=== PATIENT | male | born 1975 | race Caucasian/White ===

== ENCOUNTER 2025-06-20 11:01 | Emergency (ER) | payer BC, SELFPAY ==
--- NOTE | 2025-06-20 11:18 | EKG_ITS ---
[facility] Test Date: 2025-06-20 Pat Name: BUFFY ANTONY Department: Room: - Gender: Male Sole Layer: : 1975 Requested By: Guzman Mosley (JOZEF) Order Number: [id number] Reading MD: Guzman Mosley (JOZEF) Measurements Intervals [place] Rate: 87 P: 39 [place]: 125 QRS: 28 QRSD: 101 T: 50 QT: 338 QTc: 407 Interpretive Statements SINUS RHYTHM No previous ECG available for comparison /store/S0/[id number]/ecg/[id number].pdf
--- NOTE | 2025-06-20 11:19 | XR_ITS ---
EXAMINATION: PA lateral chest 2 views TECHNIQUE: Upright PA lateral chest 2 views Date and time: June 20, 2025, 1136 hours INDICATIONS: Chest pain beginning 2 days ago. FINDINGS: Mild prominence left ventricle No pneumonia or pulmonary edema Moderate thoracic spondylosis IMPRESSION: No pneumonia or pulmonary edema
--- NOTE | 2025-06-20 11:19 | XR_ITS ---
Examination: CT abdomen and pelvis without contrast. Coronal 3-D reconstructions. Sagittal 2-D reconstructions. Date and time of exam: June, 1113 hours INDICATIONS: Left-sided flank pain today CTDI: vol (mGy): 9.65 DLP: (mGycm): 661 Technique: Axial images of the abdomen have been obtained, 3 mm slice thickness Intravenous contrast material has not been administered. Low dose protocols were performed. One or more of the following dose reduction techniques were used; automated exposure control, adjustment of the mA and/or KV according to patient size, use of iterative reconstruction technique. Findings: 8 mm upper lateral right lobe liver lesion 5 mm upper lateral right lobe liver lesion No biliary tract dilatation No gallstones Spleen not enlarged No pancreatic mass Fat-containing left adrenal nodule 18 mm Mild renal scar formation, no renal or ureteral calculi, no hydronephrosis Normal appendix Prominent inflammatory change surrounding diverticula in the mid descending colon No peridiverticular abscess Bladder intact No significant prostatomegaly Advanced disc narrowing L4-L5, L5-S1 IMPRESSION: Acute diverticulitis at descending colon, no peridiverticular abscess Recommend MRI abdomen liver follow-up pre and post contrast to confirm liver lesions
--- NOTE | 2025-06-20 11:19 | PD.EDRME ---
Rapid Medical Screening Exam RME Arrival date/time: 06/20/25 11:01 50-year-old male presents emergency department today stating he has left upper abdominal pain patient does report history of drinking alcohol approximately 6 beers a day 5 days a week Chief Complaint: Abdominal Pain
[2025-06-20 11:20] VITALS: BP 138/93; PULSE 86; RESP 19; TEMP 37.1; O2SAT 96; BMI 30.7
[2025-06-20 12:05] LABS: Basophils # (Auto) 0.0 Thou/mm3 (0.0-0.2); Basophils % (Auto) 0 % (0-2.5); Eosinophils # (Auto) 0.1 Thou/mm3 (0.0-0.5); Eosinophils % (Auto) 0 % (0-10); Hematocrit 45.7 % (41.0-53.0); Hemoglobin 15.1 g/dL (13.5-16.0); Immature Granulocytes Auto 0.06 Thou/mm3 (0.00-0.00); Lymphocytes # (Auto) 1.9 Thou/mm3 (1.0-4.8); Lymphocytes % (Auto) 13 % (10-50); Mean Corpuscular HGB Conc 33.0 g/dl (31.0-37.0); Mean Corpuscular Hemoglobin 31.7 pg (25.0-35.0); Mean Corpuscular Volume 96 fL (80-100); Monocytes # (Auto) 1.1 Thou/mm3 (0.0-0.8); Monocytes % (Auto) 8 % (0-12); Neutrophils # (Auto) 11.0 Thou/mm3 (1.8-7.7); Neutrophils % (Auto) 78 % (37-80); Nucleated Red Blood Cell # 0.00 Thou/mm3 (0.00-0.00); Nucleated Red Blood Cell % 0 /100 WBC (0); Platelet Count 243 Thou/mm3 (140-440); RDW Standard Deviation 49.9 fL (35.1-43.9); Red Blood Count 4.76 Miln/mm3 (4.50-5.90); White Blood Count 14.2 Thou/mm3 (3.8-10.6)
[2025-06-20 12:26] LABS: Alanine Aminotransferase 33 U/L (10-49); Albumin, Serum 4.6 gm/dL (3.5-5.0); Albumin/Globulin Ratio 2.1 (1.2-2.2); Alkaline Phosphatase 86 U/L (46-116); Anion Gap 7 (7-16); Aspartate Amino Transferase 30 U/L (0-34); BUN/Creatinine Ratio 8 Ratio (12-20); Bilirubin,Total 0.9 mg/dL (0.3-1.2); Blood Urea Nitrogen 10 mg/dL (9-23); Calcium 9.3 mg/dL (8.3-10.6); Calcium (Corrected) 9.3 mg/dL (8.5-10.1); Carbon Dioxide 27.8 mMol/L (20.0-31.0); Chloride 104 mMol/L (98-107); Creatinine (Component) 1.2 mg/dL (0.6-1.3); Estimated Creatinine Clearance 100.5 mL/min (>60); Globulin 2.2 gm/dL (2.3-3.5); Glucose 119 mg/dL (74-106); Lipase 35 U/L (12-53); Osmolality,Calculated 277 (275-295); Potassium 4.3 mMol/L (3.4-5.1); Sodium 139 mMol/L (136-145); Total Protein 6.8 gm/dL (5.7-8.2); Troponin I < 0.002 ng/mL (0.0-0.045); eGFR > 60 See Note
[2025-06-20 13:11] LABS: Collection Type, Urine Clean Catch
[2025-06-20 13:15] LABS: Bilirubin,Urine Negative (Negative); Blood,Urine Negative (Negative); Clarity,Urine Clear (Clear/Hazy); Color,Urine Yellow (Lt Yel-Yel); Culture Indicated,Urine Not Indicated; Glucose, Urine 2+ (Negative); Ketones,Urine Negative (Negative); Leukocyte Esterase,Urine Negative (Negative); Nitrite,Urine Negative (Negative); PH,Urine 5.5 (5.0-7.0); Protein,Urine Negative (Neg - Trace); RBC,Urine < 1 /hpf (0-3); Specific Gravity,Urine 1.021 (1.001-1.035); Squamous Epithelial Cell,Urine < 1 /hpf (0-5); Urobilinogen,Urine Negative mg/dL (0.0-1.0); WBC,Urine < 1 /hpf (0-5)
[2025-06-20 13:22] VITALS: BP 136/97; PULSE 99; RESP 21; TEMP 37; O2SAT 96
[2025-06-20] MEDS: KETOROLAC INJ 30 MG/ML VIAL 15 MG IVP (14:14)
[2025-06-20] MEDS: MORPHINE SULF INJ 4 MG/ML VIAL 2 MG IVP (14:16)
[2025-06-20] MEDS: ONDANSETRON INJ 2 MG/ML INJ 2 ML 4 MG IVP (14:16)
[2025-06-20] MEDS: PIPER/TAZO 3.375 GM PREMIX 3.375 GM/50 ML BAG IV (14:17)
--- NOTE | 2025-06-20 14:26 | EDNOTE_ITS ---
ED Abdominal Pain RME/HPI General Chief Complaint: Abdominal Pain Stated complaint: Left lower abdominal pain X 3 days Arrival date/time: 06/20/25 11:01 Limitations: no limitations RME / HPI RME / HPI narrative: 06/20/25 11:01 50-year-old male presents emergency department today stating he has left upper abdominal pain patient does report history of drinking alcohol approximately 6 beers a day [address] SANCHEZ MAIN ED EVALUATION: 50 year old male with history of diverticulitis (last occurring 10 years ago) presents to the ED for evaluation of abdominal pain beginning 4 days ago and worsening last night. Described as aching in sensation that is located most to the left mid to lower abdomen, rating as moderate. States his pain today is similar to previous episode of diverticulitis. States he consulted with his PCP this morning who performed an ultrasound and X-ray of abdomen and advised to return next week for the results. Patient denies any association with food and ate dinner last night. Denies fevers, chills, chest pain, cough, shortness of breath, diarrhea, constipation, or urinary symptoms. Patient admits to drinking alcohol about 5 days of the week and smoking cigarettes. Related Data Previous Rx's ?Medication ?Instructions ?Recorded acetaminophen 650 mg 650 mg PO Q8H PRN fever or p ain 08/21/18 tablet,extended release #30 tabs ibuprofen 600 mg tablet 600 mg PO Q8H PRN fever or p ain 08/21/18 #30 tabs sulfamethoxazole 800 1 tab PO Q12H #20 tabs 08/21 mg-trimethoprim 160 mg tablet (Bactrim DS) ciprofloxacin HCl 500 mg tablet 500 mg PO Q12H DIVERTI CULITIS #20 06/20/25 tabs hydrocodone 5 mg-acetaminophen 325 1 tab PO Q8H PRN pa in #14 tabs 06/20/25 mg tablet metronidazole 500 mg tablet 500 mg PO Q12H 10 days #20 tabs 06/20/25 Allergies Allergy/AdvReac Type Severity Reaction Status Date / Time No Known Allergies Allergy Verified 06/20/25 11:04 Review of Systems Review of Systems Systems Reviewed: All systems reviewed, normal except as documented Past Medical History Past Medical History GASTROINTESTINAL: Positive Diverticulitis and Diverticulosis Social History SMOKING STATUS: Current some day smoker ED Exam General Limitations: Present no limitations General appearance: Present alert and in no apparent distress Head Head exam: Present atraumatic, normocephalic and normal inspection Eye Eye exam: Present normal appearance, PERRL and EOMI ENT ENT exam: Present normal exam, normal oropharynx and mucous membranes moist Neck Neck exam: Present normal inspection, full ROM and trachea midline Chest Chest inspection: Present normal inspection and symmetric chest wall rise Respiratory Respiratory exam: Present normal lung sounds bilaterally Cardiovascular Cardiovascular exam: Present regular rate, normal rhythm and normal heart sounds Abdominal Exam Abdominal exam: Present soft, tenderness (2+ tenderness to the right upper quadrant, no percussion, no rebound tenderness ) and normal bowel sounds Extremities Exam Extremities exam: Present normal inspection and full ROM Back Exam Back exam: Present normal inspection and full ROM Neurological Exam Neurological exam: Present alert, oriented X3 and CN II-XII intact Psychiatric Psychiatric exam: Present normal affect and normal mood Skin Skin exam: Present warm, dry, intact and normal color Course Quality Measures none Orders Category Date Time Status Career Portals Teacher NOW Care 06/20/25 14:01 Active Continuous Pulse Oximetry NOW Care 06/20/25 14:01 Active EKG (ED ONLY) *Do not use* NOW Care 06/20/25 11:19 Completed Insert IV NOW Care 06/20/25 14:[address] abdomen pelvis wo con Stat Exams 06/20/25 11:19 Completed EKG (ED Only) Stat Exams 06/20/25 11:18 Draft XR chest 2V Stat Exams 06/20/25 11:19 Completed CBC Stat Lab 06/20/25 11:46 Completed Comprehensive Metabolic Panel Stat Lab 06/20/25 11:46 Completed Lipase Stat Lab 06/20/25 11:46 Completed Troponin I Stat Lab 06/20/25 11:46 Completed UA, C/S IF [Urinalysis, C/S if Indicated] Stat Lab 06/20/25 13:02 Completed Ketorolac Inj [Toradol Inj] Med 06/20/25 14:04 Discontinued 15 mg IVP X1 ONE Morphine* Inj Med 06/20/25 14:04 Discontinued 2 mg IVP X1 ONE Ondansetron Inj [Zofran Inj] Med 06/20/25 14:04 Discontinued 4 mg IVP X1 ONE Piper/Tazo 3.375 gm Premix [Zosyn] Med 06/20/25 14:03 Discontinued 3.375 gm in 50 ml IV X1 Vital Signs Vital signs: Vital Signs Temperature 98.8 F 06/20/25 11:20 Pulse Rate 86 06/20/25 11:20 Respiratory Rate 19 06/20/25 11:20 Blood Pressure 138/93 H 06/20/25 11:20 Pulse Oximetry (%) 96 06/20/25 11:20 Oxygen Delivery Method Room Air 06/20/25 11:20 Pulse ox is 96% on room air which is adequate. Abdominal Pain MDM MDM Narrative MDM Narrative:: Nina Harris am scribing for and in the presence of Dr. Sanchez. Patient data External records reviewed:: [facility] previous records Clinical information provided by:: patient Social determinants that could affect healthcare access:: alcohol use Patient has the following chronic illnesses:: History of diverticulitis How is presenting disease/condition affected by chronic disease/condition?: exacerbated by Evaluation data The following diagnostics were reviewed and interpreted by me:: lab results, radiology exam(s) and EKG tracing(s) (EKG @ 11:23 AM. NSR, rate 87, no STEMI ) Lab and/or radiology exams considered but not ordered:: None Interpretation Summary: Ordering Physician: Dimitri KENNEDY)Guzman NP Date of Service: 06/20/25 Procedure(s): CT abdomen pelvis wo con Accession Number(s): [id number] cc: Dimitri KENNEDY)Guzman NP; Дмитрий Fuchs MD; NO PRIMARY/FAMILY,PHYSICIAN~ Examination: CT abdomen and pelvis without contrast. Coronal 3-D reconstructions. Sagittal 2-D reconstructions. Date and time of exam: June, 1113 hours INDICATIONS: Left-sided flank pain today CTDI: vol (mGy): 9.65 DLP: (mGycm): 661 Technique: Axial images of the abdomen have been obtained, 3 mm slice thickness Intravenous contrast material has not been administered. Low dose protocols were performed. One or more of the following dose reduction techniques were used; automated exposure control, adjustment of the mA and/or KV according to patient size, use of iterative reconstruction technique. Findings: 8 mm upper lateral right lobe liver lesion 5 mm upper lateral right lobe liver lesion No biliary tract dilatation No gallstones Spleen not enlarged No pancreatic mass Fat-containing left adrenal nodule 18 mm Mild renal scar formation, no renal or ureteral calculi, no hydronephrosis Normal appendix Prominent inflammatory change surrounding diverticula in the mid descending colon No peridiverticular abscess Bladder intact No significant prostatomegaly Advanced disc narrowing L4-L5, L5-S1 IMPRESSION: Acute diverticulitis at descending colon, no peridiverticular abscess Recommend MRI abdomen liver follow-up pre and post contrast to confirm liver lesions Dictated By: Дмитрий Fuchs MD Signed By: <Electronically signed by Дмитрий Fuchs MD in OV> 06/20/25 1151 Ordering Physician: Dimitri KENNEDY)Guzman NP Date of Service: 06/20/25 Procedure(s): XR chest 2V Accession Number(s): [id number] cc: Dimitri KENNEDY),Guzman HASKINS; Дмитрий Fuchs MD; NO PRIMARY/FAMILY,PHYSICIAN~ EXAMINATION: PA lateral chest 2 views TECHNIQUE: Upright PA lateral chest 2 views Date and time: June 20, 2025, 1136 hours INDICATIONS: Chest pain beginning 2 days ago. FINDINGS: Mild prominence left ventricle No pneumonia or pulmonary edema Moderate thoracic spondylosis IMPRESSION: No pneumonia or pulmonary edema Dictated By: Дмитрий Fuchs MD Signed By: <Electronically signed by Дмитрий Fuchs MD in OV> 06/20/25 1152 Medications / Prescriptions Medications or Prescriptions considered but not ordered:: None Medication administrations:: Medication Administration History Discontinued Medications Piperacillin/Tazobactam/Dextrose (Zosyn) 3.375 gm in 50 mls @ 100 mls/hr IV X1 ONE; Protocol Stop: 06/20/25 14:32 Last Infusion: 06/20/25 14:47 Dose: Infused Documented By: Admin: 06/20/25 14:17 Dose: 100 mls/hr Documented By: CS Ketorolac Tromethamine (Ketorolac Inj 30 Mg/Ml Vial) 15 mg IVP X1 ONE Stop: 06/20/25 14:05 Last Admin: 06/20/25 14:14 Dose: 15 mg Documented By: HARPREET Morphine Sulfate (Morphine Sulf Inj 4 Mg/Ml Vial) 2 mg IVP X1 ONE Stop: 06/20/25 14:05 Last Admin: 06/20/25 14:16 Dose: 2 mg Documented By: HARPREET Ondansetron HCl (Ondansetron Inj 2 Mg/Ml Inj 2 Ml) 4 mg IVP X1 ONE; Protocol Stop: 06/20/25 14:05 Last Admin: 06/20/25 14:16 Dose: 4 mg Documented By: HARPREET See above Consultations Consultation(s) initiated? (list below): No Diagnosis Differential diagnosis abdominal pain: abdominal pain, calculus of kidney and diverticulitis Most likely diagnosis given after review of the tests above:: Diverticulitis Admission Indicated Admission indicated?: not indicated Admission Request Was there a request for admission?: No Disposition Plan Disposition Plan: Discharge Discharge Attestation Discharge Attestation: The patient and all family members were given an opportunity to ask questions and understood the discharge instructions. Discharge instructions specifically effects, indications for sooner follow up or return to the emergency department, and the expected course of current diagnosis. Patient condition: Stable Discharge Plan Plan Patient Disposition: HOME (Self Care) Patient condition on transfer: Stable Prescriptions/Referrals Prescriptions/Med Rec: New ciprofloxacin HCl 500 mg tablet 500 mg PO Q12H MDD 2 Qty: 20 0RF metronidazole 500 mg tablet 500 mg PO Q12H 10 Days Qty: 20 0RF hydrocodone-acetaminophen 5-325 mg tablet 1 tab PO Q8H MDD 3 PRN (Reason: pain) Qty: 14 0RF No Action sulfamethoxazole-trimethoprim [Bactrim DS] 800-160 mg tablet 1 tab PO Q12H Qty: 20 0RF acetaminophen 650 mg tablet extended release 650 mg PO Q8H PRN (Reason: fever or pain) Qty: 30 0RF Rx Instructions: swallow whole; do not crush, chew, break, dissolve, cut, or open ibuprofen 600 mg tablet 600 mg PO Q8H PRN (Reason: fever or pain) Qty: 30 0RF Rx Instructions: prn pain / fever Referrals: No Primary/Family,Physician [Primary Care Provider] - In 1 week Problem List Clinical Impression: Diverticulitis Patient/Caregiver Discharge Instructions Discharge Activity: activity as tolerated Additional Instructions: Follow-up with your primary care doctor in 1 to 2 weeks. Be sure to request a CT scan of the abdomen pelvis to make sure the diverticulitis resolved completely. Take your medications as prescribed. Liquid diet for 3 days and then advance your diet as tolerated. Print Language: Greenlandic Stand Alone Forms: Lisseth Award Info., Patient Portal Info Letter
[2025-06-20 15:21] VITALS: BP 126/9; PULSE 86; RESP 19; TEMP 37; O2SAT 98
== END 2025-06-20 15:22 | disposition home or self-care (01) ==
PROVIDERS: Nurse Practitioner Primary Care; Emergency Provider Family Medicine
DX: K57.32 Diverticulitis of large intestine without perforation or abscess without bleeding (principal); Z87.891 Personal history of nicotine dependence
CPT/HCPCS: 36415; 71046; 74176; 80053; 81001; 83690; 84484; 85025; 93005; 99284; J1885; J2270; J2405; J2543